=== PATIENT | female | born 1960 | race Caucasian/White ===

== ENCOUNTER 2017-03-07 08:20 | Emergency (ER) | payer MEDICAID ==
[2017-03-07 08:27] VITALS: BP 126/80; PULSE 78; RESP 16; TEMP 98.1; O2SAT 95
--- NOTE | 2017-03-07 09:04 | EDPHY ---
H & P Stated Complaint: since wednesday burning pain scalp/l neck(has an ??insect bite on neck) Time Seen by Provider: 03/07/17 08:40 HPI/ROS: Chief Complaint: Neck pain, left scalp pain and rash HPI: 56-year-old woman began having a stiff neck last Wednesday. Over the last 24 hours she has developed a burning rash on the left side of her scalp and a lesion on her left neck. She says there bumps and blisters. Patient is also describing a electric charge tight feeling going across her scalp. There is 1 lesion just anterior to her left ear but no other facial involvement. No eye irritation or vision changes. No fevers or chills. No headache. ROS: 10 point Review of Systems is negative except as noted in the HPI. Social History: No smoking, no alcohol, no recreational drug use Family History: non-contributory Physical Exam: Gen: Awake, Alert, No Distress HEENT: Scalp left side of her scalp in the occipital going to the posterior auricular region shows a varicellaform rash which is exquisitely painful to the touch. There are small vesicles with clear fluid. There is 1 small lesion just inferior to her left ear and a tiny lesion just anterior to her left ear. Nose: no rhinorrhea Eyes: PERRLA, EOMI Mouth: Moist mucosa Neck: Supple, no JVD, full range of motion without pain Ext: no edema, non-tender Skin: Per HEENT exam Neuro: CN II-XII intact, Sensation grossly intact, Strength 5/5 in bilateral upper and lower extremities - Personal History Current Tetanus/Diphtheria Vaccine: Unsure - Medical/Surgical History Hx Asthma: No Hx Chronic Respiratory Disease: No Hx Diabetes: No Hx Cardiac Disease: No Hx Renal Disease: No Hx Cirrhosis: No Hx Alcoholism: No Hx HIV/AIDS: No Hx Splenectomy or Spleen Trauma: No Other PMH: pmh- denies. psh- tonsilectomy, wisdom, tubal ligation - Social History Smoking Status: Former smoker Constitutional: Initial Vital Signs Temperature (C) 36.7 C 03/07/17 08:24 Heart Rate 78 03/07/17 08:24 Respiratory Rate 16 03/07/17 08:24 Blood Pressure 126/80 H 03/07/17 08:24 O2 Sat (%) 95 03/07/17 08:24 O2 Delivery Mode Room Air Allergies/Adverse Reactions: Penicillins Allergy (Verified 03/07/17 08:24) Home Medications: Medication Instructions Recorded Hydrocodone/Acetaminophen 1 - 2 each PO Q4-6PRN PRN #10 03/07/17 [Hydrocodon-Acetaminophen 5-325] tablet Valacyclovir HCl [Valtrex] 1,000 mg PO TID #21 tab 03/07/17 Medical Decision Making ED Course/Re-evaluation: 56-year-old woman with shingles on her left scalp. There is no obvious ophthalmologic involvement at this time. Will start her on Valtrex, oral analgesia and follow up with her primary care physician in 4-5 days for re- evaluation. Departure - Departure Disposition: Home, Routine, Self-Care Clinical Impression: Shingles Condition: Good Instructions: Shingles (ED) Additional Instructions: Take your full course of antiviral medications. You may take Jachin as needed for the pain. Return to the ER if the rash spreads in your face and begins affecting your eye. Follow up with your primary care physician in 4-5 days for re-evaluation. Referrals: [facility] [Other] - As per Instructions Prescriptions: Hydrocodone/Acetaminophen [Hydrocodon-Acetaminophen 5-325] 1 - 2 each PO Q4- 6PRN PRN #10 tablet PRN Reason: Pain, Severe Valacyclovir HCl [Valtrex] 1,000 mg PO TID #21 tab
== END 2017-03-07 09:16 | disposition home or self-care (01) ==
LOC: SUPCPDRO 08:20
DX: B02.9 Zoster without complications (principal); Z87.891 Personal history of nicotine dependence

== ENCOUNTER 2018-12-28 14:19 | Emergency (ER) | payer MEDICAID ==
--- NOTE | 2018-12-28 14:50 | EDPHY ---
H & P Time Seen by Provider: 12/28/18 14:37 HPI/ROS: Chief complaint. Chest tightness HPI. 58-year-old female that awoke at 2:30 a.m. This morning with left side chest pressure and tightness. Persisted through the night and then got better. And then she again had left pressure and heat to the left chest beginning at about 2:00 p.m.. Slight shortness of breath. Discomfort at times radiated to her neck. 1 week ago she had sharp pains to the left lateral chest. Her pain today is not change with exertion or deep breathing. She has no fever or cough. No unusual leg pain or swelling. No hypertension or diabetes. She was seen in our emergency department for chest pain May 2014 with normal workup ROS 10 systems were reviewed and negative with the exception of the elements mentioned in the history of present illness Past Medical/Surgical History: Tubal ligation No family history of early coronary artery disease Social History: Single, nonsmoker, no alcohol Smoking Status: Former smoker Physical Exam: General Appearance: Alert pleasant well-developed female mild distress vital signs are stable Eyes: Pupils equal and round no pallor or injection. ENT, Mouth: Mucous membranes are moist. Respiratory: There are no retractions, lungs are clear to auscultation. Cardiovascular: Regular rate and rhythm. Gastrointestinal: Abdomen is soft and nontender, no masses, bowel sounds normal. Neurological: Awake and alert, sensory and motor exams grossly normal. Skin: Warm and dry, no rashes. Musculoskeletal: Neck is supple nontender. Extremities symmetrical, full range of motion. Psychiatric: Patient is oriented X 3, there is no agitation. Constitutional: Initial Vital Signs Temperature (C) 36.4 C 12/28/18 14:21 Heart Rate 84 12/28/18 14:21 Respiratory Rate 18 12/28/18 14:21 Blood Pressure 138/90 H 12/28/18 14:21 O2 Sat (%) 99 12/28/18 14:21 O2 Delivery Mode Room Air Allergies/Adverse Reactions: Penicillins Allergy (Verified 03/07/17 08:24) Home Medications: Medication Instructions Recorded Hydrocodone/Acetaminophen 1 - 2 each PO Q4-6PRN PRN #10 03/07/17 [Hydrocodon-Acetaminophen 5-325] tablet Valacyclovir HCl [Valtrex] 1,000 mg PO TID #21 tab 03/07/17 Medical Decision Making - Diagnostics EKG Interpretation: EKG interpreted by me shows normal sinus rhythm normal interval and axis. Inverted P-waves lead 3. QRS otherwise normal. Slight ST depression anterior lateral leads. No arrhythmia. The rate is 72 Repeat EKG shows normal sinus rhythm normal interval and axis. QRS is normal there is no significant ST elevation or depression. No arrhythmia. The rate is 72 Imaging Results: Imaging Impressions Chest X-Ray 12/28/18 14:49 Impression: Clear lungs. Negative portable chest. One-view chest x-ray interpreted by me is normal Procedures: IV normal saline, monitor ED Course/Re-evaluation: Re-evaluation for 10:00 p.m.. Patient is stable. Patient and I discussed imaging lab EKG findings. We discussed treatment plan including recommendation for repeat EKG and troponin as her pain seemed to exacerbate again at 2:00 p.m.. She expresses understanding and agreement No chest pain now Re-evaluation again 4:45 p.m.. Patient is stable, pain-free. Differential Diagnosis: Heart score-- History-o EKG-0 -age1 Risk factors-0 Troponin-0 Total-1 I considered acute coronary syndrome, pneumothorax, pneumonia, pulmonary embolus - Data Points Laboratory Results: Laboratory Results 12/28/18 14:35 12/28/18 14:35 12/28/18 12/28/18 12/28/18 16:23 14:43 14:35 WBC RBC Hgb Hct MCV MCH MCHC RDW Plt Count MPV Neut % (Auto) Lymph % (Auto) Harnett % (Auto) Eos % (Auto) Baso % (Auto) Nucleat RBC Rel Count Absolute Neuts (auto) Absolute Lymphs (auto) Absolute Monos (auto) Absolute Eos (auto) Absolute Basos (auto) Absolute Nucleated RBC Immature Gran % Immature Gran # D-Dimer 0.44 ug/mLFEU ug/mLFEU (0.00-0.50) Sodium Potassium Chloride Carbon Dioxide Anion Gap BUN Creatinine Estimated GFR Glucose Calcium POC Troponin I 0.00 ng/mL ng/mL 0.01 ng/mL ng/mL (0.00-0.08) (0.00-0.08) Lipase 12/28/18 12/28/18 14:35 14:35 WBC 4.05 10^3/uL 10^3/uL (3.80-9.50) RBC 5.21 10^6/uL 10^6/uL (4.18-5.33) Hgb 15.6 g/dL g/dL (12.6-16.3) Hct 47.8 % H % (38.0-47.0) MCV 91.7 fL fL (81.5-99.8) MCH 29.9 pg pg (27.9-34.1) MCHC 32.6 g/dL g/dL (32.4-36.7) RDW 13.4 % % (11.5-15.2) Plt Count 262 10^3/uL 10^3/uL (150-400) MPV 9.7 fL fL (8.7-11.7) Neut % (Auto) 48.7 % % (39.3-74.2) Lymph % (Auto) 38.8 % % (15.0-45.0) Harnett % (Auto) 10.6 % % (4.5-13.0) Eos % (Auto) 0.7 % % (0.6-7.6) Baso % (Auto) 1.2 % % (0.3-1.7) Nucleat RBC Rel Count 0.0 % % (0.0-0.2) Absolute Neuts (auto) 1.97 10^3/uL 10^3/uL (1.70-6.50) Absolute Lymphs (auto) 1.57 10^3/uL 10^3/uL (1.00-3.00) Absolute Monos (auto) 0.43 10^3/uL 10^3/uL (0.30-0.80) Absolute Eos (auto) 0.03 10^3/uL 10^3/uL (0.03-0.40) Absolute Basos (auto) 0.05 10^3/uL 10^3/uL (0.02-0.10) Absolute Nucleated RBC 0.00 10^3/uL 10^3/uL (0-0.01) Immature Gran % 0.0 % % (0.0-1.1) Immature Gran # 0.00 10^3/uL 10^3/uL (0.00-0.10) D-Dimer Sodium 137 mEq/L mEq/L (135-145) Potassium 4.2 mEq/L mEq/L (3.5-5.2) Chloride 102 mEq/L mEq/L (97-110) Carbon Dioxide 23 mEq/l mEq/l (22-31) Anion Gap 12 mEq/L mEq/L (6-14) BUN 12 mg/dL mg/dL (7-23) Creatinine 0.6 mg/dL mg/dL (0.6-1.0) Estimated GFR > 60 Glucose 93 mg/dL mg/dL (70-100) Calcium 9.3 mg/dL mg/dL (8.5-10.4) POC Troponin I Lipase 122 IU/L IU/L (23-300) Point of Care Test Results: Chemistry 12/28/18 12/28/18 16:23 14:43 POC Troponin I 0.00 ng/mL ng/mL 0.01 ng/mL ng/mL (0.00-0.08) (0.00-0.08) Departure - Departure Disposition: Home, Routine, Self-Care Clinical Impression: Chest pain Qualifiers: Chest pain type: unspecified Qualified Code(s): R07.9 - Chest pain, unspecified Condition: Good Instructions: Chest Pain (ED) Additional Instructions: Activity as tolerated. Return for worsening chest discomfort or trouble breathing Re-evaluation by Cardiology for stress test in the next 2-3 days Referrals: NONE *PRIMARY CARE P,. [Primary Care Provider] - As per Instructions Thai Duque MD [Medical Doctor] - 2-3 days, call for appt.
[2018-12-28 15:01] LABS: PLATELET COUNT 262 10^3/uL (150-400)
--- NOTE | 2018-12-28 15:35 | CPEKG ---
Test Reason : OPEN Blood Pressure : / mmHG Vent. Rate : 072 BPM Atrial Rate : 071 BPM P-R Int : 144 ms QRS Dur : 076 ms QT Int : 410 ms P-R-T Axes : 012 052 034 degrees QTc Int : 449 ms Sinus rhythm Minimal ST depression, lateral leads Confirmed by Trina Bhatti ([id number]) on 12/28/2018 3:35:14 PM Referred By: PHYSICIAN ED Confirmed By:Trina Bhatti
[2018-12-28 16:19] VITALS: BP 139/72
--- NOTE | 2018-12-28 21:51 | CPEKG ---
Test Reason : OPEN Blood Pressure : / mmHG Vent. Rate : 072 BPM Atrial Rate : 072 BPM P-R Int : 145 ms QRS Dur : 074 ms QT Int : 429 ms P-R-T Axes : 009 043 029 degrees QTc Int : 470 ms Sinus rhythm Confirmed by Clara Amezcua ([id number]) on 12/28/2018 9:50:20 PM Referred By: CLARA AMEZCUA Confirmed By:Clara Amezcua
== END 2018-12-28 16:59 | disposition home or self-care (01) ==
DX: R07.9 Chest pain, unspecified (principal); Z87.891 Personal history of nicotine dependence
CPT/HCPCS: 84484-ER